=== PATIENT | female | born 1970 | race Caucasian/White ===

== ENCOUNTER 2017-03-10 22:39 | Emergency (ER) | payer OTHER, SELFPAY ==
[~2017-03-10] VITALS: Ht 172.7 cm; Wt 84.6 kg
[2017-03-10] MEDS ORDERED: ONDANSETRON 2MG/ML, 2ML ONE (23:16)
[2017-03-10] MEDS ORDERED: FAMOTIDINE 20 MG/2 ML ONE (23:16)
[2017-03-10] MEDS ORDERED: LEVO137T2 PO (23:22)
[2017-03-10] MEDS ORDERED: SODIUM CHLORIDE 0.9% 1,000ML IVBOLUS ONE (23:30)
[2017-03-10] MEDS ORDERED: SODIUM CHLORIDE FLUSH 10ML SYR IVF ONE (23:30)
[2017-03-10] MEDS ORDERED: FAMOTIDINE 20 MG/2 ML IVP ONE (23:30)
[2017-03-10] MEDS ORDERED: ONDANSETRON 2MG/ML, 2ML IVPush ONE (23:30)
[2017-03-10 23:32] LABS: ASPARTATE AMINO TRANSFERASE 15 U/L (15-37); BLOOD UREA NITROGEN 12 mg/dL (7-18)
[2017-03-11 00:13] VITALS: BP 139/84
[2017-03-11 00:20] LABS: IS PT STATUS REG ER OR PRE ER? YES
== END 2017-03-11 01:04 | disposition home or self-care (01) ==
LOC: ED 23:53
DX: R10.13 Epigastric pain (principal); R10.12 Left upper quadrant pain; R05 Cough
CPT/HCPCS: 36415; 76700; 80053; 83690; 84484; 84703; 85025; 86677; 96361; 96374; 96375; 99285; J2405; J7030; S0028

== ENCOUNTER 2017-03-13 22:30 | Inpatient (IN) | payer OTHER ==
[~2017-03-13] VITALS: Ht 172.7 cm; Wt 84.5 kg
[~2017-03-13 22:30] MED LIST: LEVO137T2 PO
[2017-03-13] MEDS ORDERED: SODIUM CHLORIDE 0.9% 1,000ML IVBOLUS ONE (23:00)
[2017-03-13] MEDS ORDERED: OMNIPAQUE 350 MG/ML, 100ML BOTTLE ONE (23:29)
[2017-03-14 00:04] LABS: BLOOD UREA NITROGEN 14 mg/dL (7-18)
[2017-03-14 00:05] LABS: DAU SCREEN DISCLAIMER
[2017-03-14] MEDS ORDERED: SODIUM CHLORIDE 0.9% 1,000 ML IV ONE (00:43)
[2017-03-14] MEDS ORDERED: ONDANSETRON 2MG/ML, 2ML ONE (00:56)
[2017-03-14] MEDS ORDERED: ONDANSETRON 2MG/ML, 2ML IVPush PRN ×2 (01:00→01:30)
[2017-03-14] MEDS ORDERED: BISACODYL 10 MG SUPP PR PRN (01:30)
[2017-03-14] MEDS ORDERED: DOCUSATE 100 MG CAPSULE PO PRN (01:30)
[2017-03-14] MEDS ORDERED: POLYETHYLENE GLYCOL 17 GM PACKET PO PRN (01:30)
[2017-03-14 02:13] VITALS: BP 128/75
[2017-03-14] MEDS: ENOXAPARIN 40 MG/0.4 ML SQ SCH (02:30)
[2017-03-14] MEDS: LEVOTHYROXINE 137 MCG TABLET PO SCH (05:56)
[2017-03-14] MEDS: ASPIRIN 325 MG TABLET EC PO SCH (05:56)
[2017-03-14 07:40] VITALS: BP 134/71
[2017-03-14] MEDS: SODIUM CHLORIDE FLUSH 3ML SYRINGE IVF SCH ×2 (09:00→21:00)
[2017-03-14] MEDS ORDERED: LORazepam 2 MG/ML, 1ML IVPush ONE (09:50)
[2017-03-14] MEDS: ACETAMINOPHEN 325 MG TABLET PO PRN ×2 (12:36→22:06)
[2017-03-14] MEDS ORDERED: GADOBUTROL 7.5 MMOL/7.5 ML PFS ONE (13:37)
[2017-03-14 15:34] VITALS: BP 121/71
[2017-03-14 18:38] VITALS: BP 127/78
[2017-03-14] MEDS: TEMAZEPAM 15 MG CAPSULE PO PRN (22:06)
[2017-03-15 01:34] VITALS: BP 109/71
[2017-03-15] MEDS: ASPIRIN 325 MG TABLET EC PO SCH (06:11)
[2017-03-15] MEDS: LEVOTHYROXINE 137 MCG TABLET PO SCH (06:12)
[2017-03-15] MEDS: ENOXAPARIN 40 MG/0.4 ML SQ SCH (06:12)
[2017-03-15 07:17] VITALS: BP 122/82
[2017-03-15] MEDS ORDERED: ZONISAMIDE 50 MG CAPSULE PO ONE ×2 (09:00→21:00)
[2017-03-15] MEDS: SODIUM CHLORIDE FLUSH 3ML SYRINGE IVF SCH ×2 (09:00→20:03)
[2017-03-15 14:37] VITALS: BP 130/90
[2017-03-15] MEDS: ACETAMINOPHEN 325 MG TABLET PO PRN (18:57)
[2017-03-15 19:12] VITALS: BP 130/88
[2017-03-15] MEDS: TEMAZEPAM 15 MG CAPSULE PO PRN (21:40)
[2017-03-16 02:48] VITALS: BP 110/69
[2017-03-16] MEDS: LEVOTHYROXINE 137 MCG TABLET PO SCH (06:22)
[2017-03-16] MEDS: ENOXAPARIN 40 MG/0.4 ML SQ SCH (06:22)
[2017-03-16] MEDS: ASPIRIN 325 MG TABLET EC PO SCH (06:22)
[2017-03-16 08:52] VITALS: BP 118/79
[2017-03-16] MEDS: SODIUM CHLORIDE FLUSH 3ML SYRINGE IVF SCH (09:00)
[2017-03-16] MEDS ORDERED: ZONI100C2 PO (10:11)
== END 2017-03-16 11:56 | disposition home or self-care (01) | DRG 101 ==
LOC: ED 23:59 → EDIP 03-14 00:43 → 4WST 03-14 01:55
PROVIDERS: ATTEND Family Medicine
DX: G40.209 Localization-related (focal) (partial) symptomatic epilepsy and epileptic syndromes with complex partial seizures, not intractable, without status epilepticus (principal); D72.829 Elevated white blood cell count, unspecified; E03.9 Hypothyroidism, unspecified; Z82.49 Family history of ischemic heart disease and other diseases of the circulatory system; Z83.3 Family history of diabetes mellitus; Z82.61 Family history of arthritis; Z88.5 Allergy status to narcotic agent; Z88.1 Allergy status to other antibiotic agents
CPT/HCPCS: 36415; 70450; 70496; 70498; 70553; 80048; 80061; 80307; 81003; 82040; 84443; 85025; 85610; 93005; 93306; 95819; 96374; A9585; J1650; J2405; Q9967; J2060

== ENCOUNTER 2017-03-20 09:35 | Inpatient (IN) | payer OTHER ==
[~2017-03-20] VITALS: Ht 172.7 cm; Wt 81.2 kg
[~2017-03-20 09:35] MED LIST changes: +ZONI100C2 PO
[2017-03-20] MEDS ORDERED: ZONI100C2 PO (10:44)
[2017-03-20] MEDS ORDERED: LORazepam 2 MG/ML, 1ML ONE ×2 (10:54→14:11)
[2017-03-20] MEDS ORDERED: LORazepam 2 MG/ML, 1ML IVPush ONE (11:00)
[2017-03-20 12:18] LABS: BLOOD UREA NITROGEN 12 mg/dL (7-18)
[2017-03-20] MEDS ORDERED: LEVETIRACETAM 500 MG in SODIUM CHLORIDE 0.9% 100 ML IV ONE (14:00)
[2017-03-20] MEDS ORDERED: LORazepam 2 MG/ML, 1ML IVPush STA (14:16)
[2017-03-20] MEDS ORDERED: LEVETIRACETAM 500 MG in SODIUM CHLORIDE 0.9% 100 ML IV SCH (16:30)
[2017-03-20] MEDS: LORazepam 2 MG/ML, 1ML IVPush PRN (17:23)
[2017-03-20] MEDS: ENOXAPARIN 40 MG/0.4 ML SQ SCH (17:24)
[2017-03-20 20:48] VITALS: BP 111/78
[2017-03-21 02:00] VITALS: BP 103/68
[2017-03-21] MEDS: LEVETIRACETAM 500 MG in SODIUM CHLORIDE 0.9% 100 ML IV SCH ×2 (02:49→16:20)
[2017-03-21] MEDS: LEVOTHYROXINE 137 MCG TABLET PO SCH (05:49)
[2017-03-21 06:19] LABS: ASPARTATE AMINO TRANSFERASE 10 U/L (15-37); BLOOD UREA NITROGEN 13 mg/dL (7-18)
[2017-03-21 09:30] VITALS: BP 113/78
[2017-03-21] MEDS: PANTOPROZOLE 40MG TABLET PO SCH (11:00)
[2017-03-21 14:30] VITALS: BP 109/74
[2017-03-21] MEDS: ENOXAPARIN 40 MG/0.4 ML SQ SCH (17:26)
[2017-03-21 20:18] VITALS: BP 123/81
[2017-03-22] MEDS: LORazepam 2 MG/ML, 1ML IVPush PRN (00:05)
[2017-03-22 01:17] VITALS: BP 119/74
[2017-03-22] MEDS: LEVETIRACETAM 500 MG in SODIUM CHLORIDE 0.9% 100 ML IV SCH (04:36)
[2017-03-22] MEDS: LEVOTHYROXINE 137 MCG TABLET PO SCH (04:58)
[2017-03-22] MEDS ORDERED: LORazepam 2 MG/ML, 1ML IVPush ONE (05:00)
[2017-03-22 07:33] VITALS: BP 110/71
[2017-03-22] MEDS: PANTOPROZOLE 40MG TABLET PO SCH (09:00)
[2017-03-22] MEDS ORDERED: ROPI0.5T PO (12:43)
[2017-03-22] MEDS ORDERED: LEVE500T53 PO (12:43)
[2017-03-22] MEDS ORDERED: PANT40TA5 PO (12:43)
[2017-03-22 13:40] VITALS: BP 106/70
== END 2017-03-22 15:50 | disposition home or self-care (01) | DRG 101 ==
LOC: ED 13:59 → EDIP 14:00 → ED 14:08 → 4EST 16:25 → DCLOUNGE 03-22 15:20
PROVIDERS: ADMIT Internal Medicine; ATTEND Internal Medicine
DX: G40.209 Localization-related (focal) (partial) symptomatic epilepsy and epileptic syndromes with complex partial seizures, not intractable, without status epilepticus (principal); R47.01 Aphasia; F41.9 Anxiety disorder, unspecified; H53.149 Visual discomfort, unspecified; E03.9 Hypothyroidism, unspecified; G25.81 Restless legs syndrome; K21.9 Gastro-esophageal reflux disease without esophagitis; Z83.3 Family history of diabetes mellitus; Z82.49 Family history of ischemic heart disease and other diseases of the circulatory system; Z82.61 Family history of arthritis; Z88.1 Allergy status to other antibiotic agents; Z88.8 Allergy status to other drugs, medicaments and biological substances
CPT/HCPCS: 36415; 72141; 80048; 80053; 82040; 82542; 83735; 84100; 85025; 93005; 95816; 96374; 96376; J1650; J1953; J2060

== ENCOUNTER 2017-04-02 10:51 | Emergency (ER) | payer OTHER ==
[~2017-04-02 10:51] MED LIST changes: +LEVE500T53 PO; +PANT40TA5 PO; +ROPI0.5T PO
[2017-04-02] MEDS ORDERED: LORazepam 2 MG/ML, 1ML ONE (12:11)
[2017-04-04 11:48] LABS: BLOOD UREA NITROGEN 13 mg/dL (7-18)
== END 2017-04-02 15:51 | disposition home or self-care (01) ==
LOC: ED 10:51
DX: G40.119 Localization-related (focal) (partial) symptomatic epilepsy and epileptic syndromes with simple partial seizures, intractable, without status epilepticus (principal); E03.9 Hypothyroidism, unspecified
CPT/HCPCS: 36415; 80048; 82040; 82306; 82607; 82670; 84402; 84436; 84443; 84481; 85025; 86376; 93005; 99285

== ENCOUNTER 2017-05-02 17:15 | Emergency (ER) | payer OTHER ==
[~2017-05-02] VITALS: Ht 172.7 cm; Wt 80.0 kg
[2017-05-02] MEDS ORDERED: SERT50TA5 PO (17:35)
[2017-05-02] MEDS ORDERED: ALPR-475 PO (17:35)
[2017-05-02] MEDS ORDERED: LORazepam 1MG TABLET ONE (17:45)
[2017-05-02] MEDS ORDERED: PLEASE ENTER WEIGHT MC SCH (18:00)
[2017-05-02] MEDS ORDERED: LORazepam 0.5MG TABLET PO ONE (18:00)
[2017-05-02 19:49] VITALS: BP 136/68
== END 2017-05-02 19:56 | disposition home or self-care (01) ==
LOC: ED 18:11
DX: F41.1 Generalized anxiety disorder (principal); E03.9 Hypothyroidism, unspecified; Z85.850 Personal history of malignant neoplasm of thyroid; Z86.73 Personal history of transient ischemic attack (TIA), and cerebral infarction without residual deficits
CPT/HCPCS: 99284

== ENCOUNTER 2021-04-25 15:35 | Emergency (ER) | payer OTHER ==
[~2021-04-25] VITALS: Ht 165.1 cm; Wt 93.4 kg
[~2021-04-25 15:35] MED LIST changes: +ALPR0.5T7 PO; -PANT40TA5 PO; +PANT40TA6 PO; +SERT50TA28 PO; -ZONI100C2 PO; +ZONI100C29 PO
[2021-04-25 15:40] VITALS: BP 153/75
[2021-04-25] MEDS ORDERED: MICROFIBRILLAR COLLAGEN 0.5GM/PACK TP ONE (16:00)
[2021-04-25] MEDS ORDERED: LIDOCAINE-MPF 1%, 5ML INFIL ONE (16:00)
[2021-04-25] MEDS ORDERED: DIPH,PERTUSS(ACELL),TET VAC/PF 0.5 ML IM-VACC ONE ×2 (16:00→16:09)
[2021-04-25] MEDS ORDERED: LIDOCAINE-MPF 1%, 5ML ONE (16:09)
[2021-04-25] MEDS ORDERED: MICROFIBRILLAR COLLAGEN 1 GM TP ONE (16:09)
== END 2021-04-25 16:51 | disposition home or self-care (01) ==
LOC: ED 16:05
DX: S61.213A Laceration without foreign body of left middle finger without damage to nail, initial encounter (principal); M79.645 Pain in left finger(s); E03.9 Hypothyroidism, unspecified; Z90.89 Acquired absence of other organs; Z86.73 Personal history of transient ischemic attack (TIA), and cerebral infarction without residual deficits; W45.8XXA Other foreign body or object entering through skin, initial encounter; Y93.89 Activity, other specified; Y92.009 Unspecified place in unspecified non-institutional (private) residence as the place of occurrence of the external cause; Y99.8 Other external cause status
CPT/HCPCS: 64450; 90471; 90715; 99284